=== PATIENT | female | born 1980 | race Caucasian/White ===

== ENCOUNTER 2017-12-14 10:20 | Emergency (ER) | payer MEDICAID ==
[2017-12-14 11:41] LABS: ADD MAN DIFF? NO
[2017-12-14 11:49] LABS: BASOPHILS % 0.5 % (0.0-2.0); EOSINOPHILS # 0.1 10^3/ul (0.0-0.5); EOSINOPHILS % 0.9 % (0.0-7.0); HEMATOCRIT 39.5 % (37.0-47.0); LYMPHOCYTES # 1.7 10^3/ul (0.8-2.9); LYMPHOCYTES % 21.3 % (15.0-51.0); MEAN CORPUSCULAR HEMOGLOBIN 31.3 pg (29.0-33.0); MEAN CORPUSCULAR HGB CONC 32.9 g/dl (32.0-37.0); MEAN PLATELET VOLUME 10.1 fl (7.4-10.4); MONOCYTE # 0.7 10^3/ul (0.3-0.9); MONOCYTES % 9.3 % (0.0-11.0); NEUTROPHIL # 5.4 10^3/ul (1.6-7.5); NEUTROPHILS % 67.9 % (39.0-77.0); PLATELET COUNT 270 10^3/UL (140-415); RED BLOOD COUNT 4.16 10^6/ul (4.20-5.40); RED CELL DISTRIBUTION WIDTH 12.5 % (11.5-14.5)
[2017-12-14 12:02] LABS: ADD UMIC YES; UR ASCORBIC ACID 20 mg/dL (NEGATIVE); UR BILIRUBIN (Dip) NEGATIVE (NEGATIVE); UR BLOOD (Dip) 1+ mg/dL (NEGATIVE); UR CLARITY CLEAR (CLEAR); UR COLOR YELLOW (YELLOW); UR GLUCOSE (Dip) 1+ mg/dL (NEGATIVE); UR KETONES (Dip) NEGATIVE (NEGATIVE); UR LEUKOCYTE ESTERASE (Dip) NEGATIVE Leu/ul (NEGATIVE); UR NITRITE (Dip) NEGATIVE (NEGATIVE); UR RBC 18 /HPF (0-5); UR SPECIFIC GRAVITY (Dip) 1.025 (1.003-1.030); UR TOTAL PROTEIN (Dip) NEGATIVE (NEGATIVE); UR UROBILINOGEN (Dip) NEGATIVE (NEGATIVE); UR WBC 1 /HPF (0-5)
[2017-12-14 12:03] LABS: UR MUCUS FEW /HPF (NONE SEEN); UR SQUAMOUS EPITHELIAL CELL FEW /HPF (FEW)
== END 2017-12-14 15:42 | disposition home or self-care (01) ==
LOC: FTE 10:20
DX: O26.31 Retained intrauterine contraceptive device in pregnancy, first trimester (principal); Z3A.01 Less than 8 weeks gestation of pregnancy
CPT/HCPCS: 36415; 76801; 76817; 81001; 84702; 85025; 86900; 86901; 99284-25

== ENCOUNTER → 2018-01-10 | Outpatient (CLI) | payer MEDICAID | END | disposition home or self-care (01) | LOC: U/S 07:57 | DX: O26.31 Retained intrauterine contraceptive device in pregnancy, first trimester (principal); Z3A.10 10 weeks gestation of pregnancy | CPT/HCPCS: 76801 ==

== ENCOUNTER 2018-08-02 07:23 | Inpatient (IN) | payer MEDICAID ==
[2018-08-02] MEDS ORDERED: BUTORPHANOL 2 MG INJ IV (09:30)
[2018-08-02] MEDS ORDERED: OXYTOCIN 30 UNITS/LR 500 ML IV (09:30)
[2018-08-02] MEDS ORDERED: METHYLERGONOVINE 0.2 MG INJ IM (09:30)
[2018-08-02] MEDS ORDERED: BUTORPHANOL 1 MG INJ IV (09:30)
[2018-08-02] MEDS ORDERED: MISOPROSTOL 200 MCG TAB PR (09:30)
[2018-08-02] MEDS ORDERED: CARBOPROST 250 MCG INJ IM (09:30)
[2018-08-02 10:18] LABS: ADD MAN DIFF? NO
[2018-08-02 10:21] LABS: BASOPHILS % 0.2 % (0.0-2.0); EOSINOPHILS % 0.5 % (0.0-7.0); HEMATOCRIT 37.9 % (37.0-47.0); HEMOGLOBIN 12.8 g/dl (12.0-16.0); LYMPHOCYTES # 1.3 10^3/ul (0.8-2.9); LYMPHOCYTES % 14.8 % (15.0-51.0); MEAN CORPUSCULAR HEMOGLOBIN 32.7 pg (29.0-33.0); MEAN CORPUSCULAR HGB CONC 33.8 g/dl (32.0-37.0); MEAN CORPUSCULAR VOLUME 96.7 fl (82.0-101.0); MEAN PLATELET VOLUME 11.5 fl (7.4-10.4); MONOCYTE # 0.7 10^3/ul (0.3-0.9); MONOCYTES % 8.5 % (0.0-11.0); NEUTROPHIL # 6.4 10^3/ul (1.6-7.5); NEUTROPHILS % 75.4 % (39.0-77.0); PLATELET COUNT 178 10^3/UL (140-415); RED BLOOD COUNT 3.92 10^6/ul (4.20-5.40); RED CELL DISTRIBUTION WIDTH 13.5 % (11.5-14.5)
[2018-08-02 10:21] LABS: WHITE BLOOD COUNT 8.5 10^3/ul (4.8-10.8)
[2018-08-02] MEDS: LACTATED RINGER'S 1,000 ML IV ×3 (10:34→17:19)
[2018-08-02 10:40] LABS: INR 0.96; PARTIAL THROMBOPLASTIN TIME 26.4 Sec (23.0-35.0); PROTIME 12.9 Sec (11.9-14.9)
[2018-08-02] MEDS: OXYTOCIN 30 UNITS/LR 500 ML IV (11:32)
[2018-08-02 12:20] LABS: HEPATITIS B SURFACE ANTIGEN NEGATIVE (NEGATIVE)
[2018-08-02] MEDS ORDERED: ROPIVACAINE 0.2% 100 ML (16:27)
[2018-08-02] MEDS ORDERED: NALOXONE (0.4 MG/ML) INJ IV (17:00)
[2018-08-02 20:13] LABS: RAPID PLASMA REAGIN NONREACTIVE (NR)
[2018-08-03] MEDS: LACTATED RINGER'S 1,000 ML IV ×3 (00:04→16:11)
[2018-08-03] MEDS: ROPIVACAINE 0.2% 100ML BAG EPI ×3 (02:07→15:18)
[2018-08-03] MEDS: OXYTOCIN 30 UNITS/LR 500 ML IV ×5 (09:02→21:32)
[2018-08-03] MEDS: MINERAL OIL 30ML CUP PO (16:56)
[2018-08-03] MEDS: LIDOCAINE 1% (MPF) 30 ML INJ INJ ×2 (17:03→17:06)
[2018-08-03] MEDS: KETOROLAC 30 MG INJ IV (19:18)
[2018-08-03] MEDS: LACTATED RINGER'S 1,000 ML IV* (21:08)
[2018-08-03] MEDS ORDERED: CARBOPROST 250 MCG INJ IM (21:30)
[2018-08-03] MEDS ORDERED: ZOLPIDEM 5 MG TAB PO (21:30)
[2018-08-03] MEDS ORDERED: MISOPROSTOL 200 MCG TAB PR (21:30)
[2018-08-03] MEDS ORDERED: DIBUCAINE 1% 30 GM OINT TOP (21:30)
[2018-08-03] MEDS ORDERED: HYDROCODONE/APAP (5/325) TAB PO (21:30)
[2018-08-03] MEDS ORDERED: METHYLERGONOVINE 0.2 MG INJ IM (21:30)
[2018-08-03] MEDS: LANOLIN HPA 1 PKT TOP (21:33)
[2018-08-03] MEDS: WITCH HAZEL/GLYCERIN PAD PR (21:33)
[2018-08-03] MEDS: BENZOCAINE 20% 56 ML SPRAY TOP (21:33)
[2018-08-04] MEDS: CEPHALEXIN 500 MG CAP PO ×5 (00:10→23:47)
[2018-08-04] MEDS: LACTATED RINGER'S 1,000 ML IV* ×3 (05:08→22:04)
[2018-08-04] MEDS: IBUPROFEN 600 MG TAB PO ×5 (06:03→23:48)
[2018-08-04 08:47] LABS: WHITE BLOOD COUNT 9.4 10^3/ul (4.8-10.8)
[2018-08-04 08:47] LABS: ADD MAN DIFF? NO; BASOPHILS % 0.3 % (0.0-2.0); EOSINOPHILS # 0.1 10^3/ul (0.0-0.5); EOSINOPHILS % 0.5 % (0.0-7.0); HEMATOCRIT 31.1 % (37.0-47.0); HEMOGLOBIN 10.5 g/dl (12.0-16.0); LYMPHOCYTES # 1.2 10^3/ul (0.8-2.9); LYMPHOCYTES % 12.3 % (15.0-51.0); MEAN CORPUSCULAR HEMOGLOBIN 33.1 pg (29.0-33.0); MEAN CORPUSCULAR HGB CONC 33.8 g/dl (32.0-37.0); MEAN CORPUSCULAR VOLUME 98.1 fl (82.0-101.0); MEAN PLATELET VOLUME 11.6 fl (7.4-10.4); MONOCYTES % 10.7 % (0.0-11.0); NEUTROPHIL # 7.1 10^3/ul (1.6-7.5); NEUTROPHILS % 75.7 % (39.0-77.0); PLATELET COUNT 153 10^3/UL (140-415); RED BLOOD COUNT 3.17 10^6/ul (4.20-5.40); RED CELL DISTRIBUTION WIDTH 13.3 % (11.5-14.5)
[2018-08-04] MEDS: SENNA/DOCUSATE NA (8.6MG/50MG) TAB PO ×2 (11:23→21:10)
[2018-08-04] MEDS: MAGNESIUM HYDROXIDE 30ML CUP PO ×2 (11:24→21:10)
[2018-08-05] MEDS: HYDROCODONE/APAP (5/325) TAB PO ×2 (03:48→21:54)
[2018-08-05] MEDS: LACTATED RINGER'S 1,000 ML IV* ×2 (04:53→14:43)
[2018-08-05] MEDS: IBUPROFEN 600 MG TAB PO ×4 (06:00→23:34)
[2018-08-05] MEDS: CEPHALEXIN 500 MG CAP PO ×4 (06:00→23:34)
[2018-08-05] MEDS ORDERED: ROCURONIUM 50 MG INJ (07:00)
[2018-08-05] MEDS ORDERED: NEOSTIGMINE 10 MG INJ (07:00)
[2018-08-05] MEDS ORDERED: SUCCINYLCHOLINE CHLORIDE 100 MG/5 ML SYG IV (07:00)
[2018-08-05] MEDS ORDERED: PROPOFOL 200 MG INJ (07:00)
[2018-08-05] MEDS ORDERED: CEFAZOLIN 1 GM INJ (07:00)
[2018-08-05] MEDS ORDERED: GLYCOPYRROLATE 0.4 MG INJ (07:00)
[2018-08-05] MEDS ORDERED: METOCLOPRAMIDE 10 MG INJ (07:00)
[2018-08-05] MEDS ORDERED: DEXAMETHASONE 4 MG/ML 5 ML INJ (07:00)
[2018-08-05] MEDS ORDERED: LIDOCAINE 2% (SDV) 5 ML INJ (07:00)
[2018-08-05] MEDS: DIPHTH/TET/ACEL PERTUSS (ADULT) 0.5 ML VIAL IM* (09:00)
[2018-08-05] MEDS: VARICELLA VACCINE LIVE/PF 1,350 UNIT/0.5 ML ML SC* (09:00)
[2018-08-05] MEDS: MAGNESIUM HYDROXIDE 30ML CUP PO ×2 (09:00→21:00)
[2018-08-05] MEDS: MEASLES,MUMPS,RUBELLA VACCINE INJ SC* (09:00)
[2018-08-05] MEDS: SENNA/DOCUSATE NA (8.6MG/50MG) TAB PO ×2 (09:00→21:00)
[2018-08-05] MEDS ORDERED: FENTAnyl 50 MCG/ML VIAL (15:09)
[2018-08-05] MEDS ORDERED: MIDAZOLAM 1 MG/ML 2 ML INJ (15:09)
[2018-08-05] MEDS ORDERED: ONDANSETRON 4 MG INJ (15:10)
[2018-08-05] MEDS ORDERED: DIPHENHYDRAMINE 50 MG INJ IV ×2 (15:30→19:00)
[2018-08-05] MEDS ORDERED: ONDANSETRON 4 MG INJ IV ×2 (15:30→19:00)
[2018-08-05] MEDS ORDERED: LEVALBUTEROL (NEB) 1.25 MG/0.5 ML AMP HHN ×2 (15:30→19:00)
[2018-08-05] MEDS ORDERED: FENTAnyl 50 MCG/ML VIAL IV ×2 (15:30)
[2018-08-05] MEDS ORDERED: KETOROLAC 30 MG INJ IV (15:30)
[2018-08-05] MEDS ORDERED: HYDROmorphONE 1 MG/5 ML IV SYRINGE IV ×3 (15:30)
[2018-08-05] MEDS ORDERED: ROPIVACAINE 0.5 % 30 ML VIAL (15:47)
[2018-08-05] MEDS ORDERED: PHENYLephrine (100 MCG/ML) 5ML SYG (16:36)
[2018-08-05] MEDS: BUPIVACAINE 0.5%/EPI (SDV) 30 ML INJ (16:44)
[2018-08-05] MEDS ORDERED: ACETAMINOPHEN 325 MG TAB PO (17:30)
[2018-08-05] MEDS: LACTATED RINGER'S 1,000 ML IV (17:40)
[2018-08-05] MEDS ORDERED: SUGAMMADEX SODIUM 200 MG/2 ML VIAL IV (17:55)
[2018-08-05] MEDS: KETOROLAC 30 MG INJ IM (21:05)
[2018-08-05] MEDS: BUTORPHANOL 2 MG INJ IM (21:06)
== END 2018-08-06 00:35 | disposition home or self-care (01) | DRG 798 ==
LOC: OBT 07:23 → PP1 08-03 20:42 → L-D 07:24 → OBT 09:15 → L-D 09:26
PROVIDERS: Obstetrics & Gynecology
PROC: 0UB70ZZ Excision of Bilateral Fallopian Tubes, Open Approach (ICD-10-PCS; 2018-08-05 15:00)
PROC: 10E0XZZ Delivery of Products of Conception, External Approach (ICD-10-PCS; principal; 2018-08-05 16:13)
PROC: 0KQM0ZZ Repair Perineum Muscle, Open Approach (ICD-10-PCS; 2018-08-05 16:13)
DX: O66.0 Obstructed labor due to shoulder dystocia (principal); Z37.0 Single live birth; O70.1 Second degree perineal laceration during delivery; Z97.5 Presence of (intrauterine) contraceptive device; Z3A.40 40 weeks gestation of pregnancy; Z30.2 Encounter for sterilization
CPT/HCPCS: 62319; 76815; 76818; 85025; 85610; 85730; 86592; 86850; 86900; 86901; 87086; 87340; 88302; 88307; 90715; 90716; 99464